=== PATIENT | female | born 1970 | race Caucasian/White ===

== ENCOUNTER 2022-01-05 09:22 | Outpatient (CLI) | payer BC, SELFPAY ==
[2022-01-05 12:08] LABS: Cholesterol* 214 mg/dL (90-199)
[2022-01-05 12:09] LABS: Glucose* 83 mg/dL (60-115); HDL Cholesterol* 75 mg/dL (>=50); LDL Cholesterol Calculated 129 mg/dL (<100); Triglycerides* 49 mg/dL (40-149)
== END 2022-01-05 09:23 | disposition home or self-care (01) ==
LOC: NFLDREF 09:24
PROVIDERS: PCP Emergency Medicine; Visit Provider Registered Nurse
DX: Z01.419 Encounter for gynecological examination (general) (routine) without abnormal findings (principal); Z13.1 Encounter for screening for diabetes mellitus; Z13.6 Encounter for screening for cardiovascular disorders
CPT/HCPCS: 80061; 82947

== ENCOUNTER 2022-04-13 09:04 | Outpatient (CLI) | payer BC, SELFPAY ==
--- NOTE | 2022-04-13 09:15 | CRLHL7_ITS ---
For Patients: As a result of the Century Cures Act, medical imaging exams and procedure reports are released immediately into your electronic medical record. You may view this report before your referring provider. If you have questions, please contact your health care provider. BILATERAL SCREENING MAMMOGRAM WITH COMPUTER-AIDED DETECTION AND TOMOSYNTHESIS TECHNIQUE: CC and MLO views were obtained. These mammographic images have been obtained using full-field digital technique. These mammographic images were interpreted with the benefit of computer-aided detection. Breast Tomosynthesis was used in this interpretation. COMPARISON FILM: 03/13/21, 01/04/20, 07/18/18. FINDINGS: The breasts are heterogeneously dense, which may obscure small masses IMPRESSION: There is no radiographic evidence for malignancy. ASSESSMENT: BI-RADS Category 1: Negative RECOMMENDATION: Routine screening mammogram in 1 year. A lay language report of this examination will be provided to the patient. Eliu Watts M.D. Diagnostic Radiologist [email or web address] Transcribed: 12:21 p.m. PT/Dictated by: Eliu Watts MD @ 04/13/2022 11:02:00 AM (Electronically Signed)
== END 2022-04-13 09:05 | disposition home or self-care (01) ==
LOC: MAMMO 09:06
PROVIDERS: PCP Emergency Medicine; Visit Provider Registered Nurse
DX: Z12.31 Encounter for screening mammogram for malignant neoplasm of breast (principal); R92.2 Inconclusive mammogram
CPT/HCPCS: 77063; 77067

== ENCOUNTER 2022-09-21 14:55 | Outpatient (CLI) | payer BC, SELFPAY | END 2022-09-21 14:56 | disposition home or self-care (01) | LOC: NFLDREF 09-22 08:36 | PROVIDERS: PCP Emergency Medicine; Referring Provider Emergency Medicine; Visit Provider Physician Assistant | DX: R30.0 Dysuria (principal); N39.0 Urinary tract infection, site not specified | CPT/HCPCS: 87086; 87186 ==

== ENCOUNTER 2023-05-31 11:04 | Outpatient (CLI) | payer BC, SELFPAY ==
[2023-06-01 15:55] LABS: HSV Type 1/2 Combined Ab, IgG >22.40 IV
[2023-06-02 04:48] LABS: HSV 2 Glycoprotein G Ab, IgG 9.95 IV (<=0.89)
[2023-06-02 13:31] LABS: HSV 1 Subtype by PCR Not Detected; HSV 2 Subtype by PCR Detected; Herpes Simplex Subtype Source Vesicle
== END 2023-05-31 11:05 | disposition home or self-care (01) ==
PROVIDERS: PCP Emergency Medicine; Visit Provider Registered Nurse
DX: N90.89 Other specified noninflammatory disorders of vulva and perineum (principal); Z13.220 Encounter for screening for lipoid disorders; Z13.1 Encounter for screening for diabetes mellitus
CPT/HCPCS: 80061; 82947; 86694; 86695; 86696; 87529

== ENCOUNTER 2023-08-02 15:14 | Outpatient (CLI) | payer BC, SELFPAY ==
--- NOTE | 2023-08-02 15:20 | CRLHL7_ITS ---
For Patients: As a result of the Century Cures Act, medical imaging exams and procedure reports are released immediately into your electronic medical record. You may view this report before your referring provider. If you have questions, please contact your health care provider. BILATERAL SCREENING MAMMOGRAM WITH COMPUTER-AIDED DETECTION AND TOMOSYNTHESIS TECHNIQUE: CC and MLO views were obtained. These mammographic images have been obtained using full-field digital technique. These mammographic images were interpreted with the benefit of computer-aided detection. Breast Tomosynthesis was used in this interpretation. COMPARISON FILM: 04/13/22, 03/13/21, 01/04/20. FINDINGS: There are scattered areas of fibroglandular density. IMPRESSION: There is no radiographic evidence for malignancy. ASSESSMENT: BI-RADS Category 1: Negative RECOMMENDATION: Routine screening mammogram in 1 year. A lay language report of this examination will be provided to the patient. Eliu Watts M.D. Diagnostic Radiologist [email or web address] SP/Dictated by: Eliu Watts MD @ 08/05/2023 8:44:00 AM (Electronically Signed)
== END 2023-08-02 15:15 | disposition home or self-care (01) ==
LOC: MAMMO 15:14
PROVIDERS: PCP Emergency Medicine; Visit Provider Emergency Medicine
DX: Z12.31 Encounter for screening mammogram for malignant neoplasm of breast (principal)
CPT/HCPCS: 77063; 77067

== ENCOUNTER 2024-09-01 12:33 | Outpatient (CLI) | payer BC, SELFPAY | END 2024-09-01 12:34 | disposition home or self-care (01) | PROVIDERS: PCP Emergency Medicine; Visit Provider Registered Nurse | DX: Z13.6 Encounter for screening for cardiovascular disorders (principal); Z13.29 Encounter for screening for other suspected endocrine disorder | CPT/HCPCS: 80061; 84443 ==

== ENCOUNTER 2024-09-01 12:50 | Outpatient (CLI) | payer BC, SELFPAY ==
--- NOTE | 2024-09-01 13:00 | CRLHL7_ITS ---
For Patients: As a result of the Century Cures Act, medical imaging exams and procedure reports are released immediately into your electronic medical record. You may view this report before your referring provider. If you have questions, please contact your health care provider. INDICATION: BILATERAL SCREENING MAMMOGRAM, ASYMPTOMATIC 54 Y/O FEMALE COMPARISON: 08/02/2023, 04/13/2022, 03/13/2021 TECHNIQUE: Digital mammogram in CC and MLO projections including computer-aided detection (CAD) and tomosynthesis. BREAST COMPOSITION: The breasts are heterogeneously dense, which may obscure small masses. FINDINGS: No suspicious findings. ASSESSMENT: BI-RADS 1 Negative RECOMMENDATION: Annual screening mammogram. A lay language report of this examination will be provided to the patient. Dictated by: Eliu Watts MD @ 09/02/2024 12:56:13 (Electronically Signed)
== END 2024-09-01 12:51 | disposition home or self-care (01) ==
LOC: MAMMO 12:51
PROVIDERS: PCP Emergency Medicine; Visit Provider Registered Nurse
DX: Z12.31 Encounter for screening mammogram for malignant neoplasm of breast (principal); R92.333 Mammographic heterogeneous density, bilateral breasts
CPT/HCPCS: 77063; 77067